=== PATIENT | female | born 1985 ===

== ENCOUNTER 2025-10-12 08:00 | Day surgery (SDC) | payer OTHER ==
[2025-10-05 11:42] LABS: URINE APPEARANCE Clear; URINE BILIRRUBIN Negative (NEGATIVE); URINE BLOOD Negative; URINE COLOR Yellow; URINE GLUCOSE Negative (NEGATIVE); URINE KETONE Negative (NEGATIVE); URINE LEUKOCYTE Negative; URINE NITRATE Negative; URINE PROTEIN Negative (NEGATIVE); URINE UROBILINOGEN 0.2 E.U./dl
[2025-10-05 11:44] LABS: BASO % 0.5 % (0.1-1.2); EOS # 0.12 (0.04-0.54); EOS % 2.1 % (0.7-7.0); LYMPH # 2.34 (1.18-3.74); LYMPH % 40.7 % (19.3-53.1); MEAN PLATELET VOLUME 10.40 fl (9.4-12.4); MONO # 0.39 (0.24-0.82); MONO % 6.8 % (4.7-12.5); NEUT # 2.85 (1.56-6.13); NEUT % 49.6 % (34.0-71.1); RED CELL DISTRIBUTION WIDTH 12.5 % (11.6-14.4)
[2025-10-05 11:46] LABS: URINE BACTERIA 1445.8 uL (0.0-1933); URINE EPITHELIAL CELLS 21.1 uL (0.0-38.8); URINE RBC 16.5 uL (0.0-20.8); URINE WBC 12.1 uL (0.0-23.2)
[2025-10-05 11:53] LABS: URINE CAST 0.14 uL (0.0-1.40)
[2025-10-05 12:02] VITALS: BP 121/82
[2025-10-05 12:23] LABS: INR 0.99
[2025-10-05 12:28] LABS: ALT/SGPT 22.0 U/L (12-78); AST/SGOT 11.0 U/L (15-37); BILIRUBIN TOTAL 0.53 mg/dL (0.3-1.2); BUN CREA RATIO 12.0 (7.0-25.0); CREATININE SERUM 0.67 mg/dL (0.55-1.02); GFR 96.99; GLOBULINA 2.9 G/DL (2.4-3.5); GLUCOSE FASTING 122.0 mg/dL (65-100); OSMOLALITY SERUM 281.0 MOSM/KG (275-295)
[~2025-10-12 08:00] MED LIST: MOUNJARO5 MG/0.5 M; NEURONTIN600 MG; SYNTHROID50 MCG
[2025-10-12] MEDS ORDERED: GENTAMICIN SULFATE 40 MG/ML VIAL ONE (08:19)
[2025-10-12] MEDS ORDERED: POVIDONE-IODINE 118 ML BOTT TOP ONE (09:48)
[2025-10-12] MEDS ORDERED: ENALAPRILAT DIHYDRATE 1.25 MG/ML VIAL IV ONE (11:44)
[2025-10-12] MEDS ORDERED: SUGAMMADEX SODIUM 200 MG/2 ML VIAL IV ONE (12:02)
[2025-10-12] MEDS ORDERED: NAPROXEN500 MG PO (12:26)
[2025-10-12] MEDS ORDERED: ACETAMINOPHEN-1 EAC2 PO (12:27)
== END 2025-10-12 15:20 | disposition home or self-care (01) ==
LOC: CIR.AMB 08:00
PROVIDERS: ATTEND Obstetrics & Gynecology
DX: D28.2 Benign neoplasm of uterine tubes and ligaments (principal); N83.292 Other ovarian cyst, left side; N70.11 Chronic salpingitis